=== PATIENT | male | born 1960 | race Caucasian/White ===

== ENCOUNTER 2016-07-12 09:14 | Observation (INO) | payer MEDICARE, OTHER ==
--- NOTE | ~2016-07-12 | CN ---
Consultation Report [facility] [address] [place]. [address] NAME: RENATE TEJEDA JR : 62 STATUS : ADM IN PAT#: [id number] AGE: 56 ADM/REG DATE : 07/12/16 MR#: [id number] REPORT SERV DATE: 07/13/16 DICTATED BY: ARNALDO CHO. DATE: 07/12/16 REPORT STATUS : Draft TRANSCRIBED BY: MODChloe DATE: 07/12/16 NEPHROLOGY CONSULT DATE OF CONSULTATION: 07/12/2016 CHIEF COMPLAINT: ESRD. HISTORY OF PRESENT ILLNESS: The patient is a 56-year-old white male with significant past medical history of ESRD, amiodarone dependent atrial fibrillation, diabetes, and COPD, who presented to [facility] for a scheduled elevation of his left upper AV fistula. DICTATION ENDS HERE JUAN C/ELIZABETH Arnaldo Cho M.D. / [id number] CC: Laurent Carbajal M.D.
--- NOTE | ~2016-07-12 | CN ---
Consultation Report [facility] [address] [place]. [address] NAME: RENATE TEJEDA ANGELLA CHAPARRO : 62 STATUS : JOAQUÍN JACKSON#: [id number] AGE: 56 ADM/REG DATE : 07/12/16 MR#: [id number] REPORT SERV DATE: 09/29/16 DICTATED BY: ARNALDO CHO DATE: 09/29/16 REPORT STATUS : Draft TRANSCRIBED BY: ELIZABETH DATE: 09/29/16 DATE OF CONSULTATION: 07/13/2016 HISTORY OF PRESENT ILLNESS: The patient is a 56-year-old white male with significant past medical history of ESRD, amiodarone-dependent atrial fibrillation, diabetes, COPD, who presented to [facility] for scheduled evaluation and management of his left upper AV fistula. Dr. Carbajal admitted the patient for a 23-hour observation for elevation of his left upper AV fistula. PAST MEDICAL HISTORY/PAST SURGICAL HISTORY: 1. End-stage renal disease, left upper AV fistula. 2. COPD. 3. Diabetes. 4. Hypertension. 5. Amiodarone-dependent atrial fibrillation. 6. Hypothyroidism. SOCIAL HISTORY/FAMILY HISTORY: Noncontributory. ALLERGIES: UNKNOWN. MEDICATIONS: Please see MAR. REVIEW OF SYSTEMS: Complete review of systems done and is negative, otherwise, as stated in the HPI. PHYSICAL EXAMINATION: VITAL SIGNS: The patient is afebrile, hemodynamically stable. GENERAL: He is no apparent distress. He answers questions appropriately. SKIN: No petechiae or purpura. NECK: Trachea is midline. HEENT: Moist mucous membranes. No scleral icterus. CARDIOVASCULAR: Irregularly irregular. No gallops, rubs, or murmurs. RESPIRATORY: Scattered wheezes. No increased respiratory rate. ABDOMEN: Soft. Positive bowel sounds. EXTREMITIES: No peripheral edema. LABS: Reviewed. ASSESSMENT AND PLAN: 1. End-stage renal disease, hemodialysis will be completed on a scheduled basis. Labs will be monitored including electrolytes, acid base, anemia. 2. Home medications. 3. Chronic obstructive pulmonary disease, nebs, Solu-Medrol IV x1. Chest x-ray. 4. Home and p.r.n. medications. Consultation Report [facility] [address] [place]. [address] NAME: RENATE TEJEDA ANGELLA CHAPARRO : 62 STATUS : DIS Radha PAT#: [id number] AGE: 56 ADM/REG DATE : 07/12/16 MR#: [id number] REPORT SERV DATE: 09/29/16 DICTATED BY: ARNALDO CHO. DATE: 09/29/16 REPORT STATUS : Draft TRANSCRIBED BY: ELIZABETH DATE: 09/29/16 5. Disposition, per primary team. SGG/ELIZABETH Arnaldo Cho M.D. / [id number] CC: Laurent Carbajal M.D.
--- NOTE | ~2016-07-12 | OP ---
Record Of Operation [facility] [address] [place]. [address] NAME: RENATE TEJEDA JR : 62 STATUS : DIS Radha PAT#: [id number] AGE: 56 ADM/REG DATE : 07/12/16 MR#: [id number] REPORT SERV DATE: 07/17/16 DICTATED BY: LAURENT CARBAJAL DATE: 07/16/16 REPORT STATUS : Draft TRANSCRIBED BY: ELIZABETH DATE: 07/16/16 DATE OF PROCEDURE: 07/12/2016 PREPROCEDURE DIAGNOSIS: Failing left arm AV fistula, difficult for cannulation. POSTOPERATIVE DIAGNOSIS: Failing left arm AV fistula, difficult for cannulation. PROCEDURE PERFORMED: Elevation of the distal left arm AV fistula. ATTENDING: Laurent Carbajal M.D. ANESTHESIA: Local MAC. COMPLICATIONS: None. INDICATION FOR PROCEDURE: Secondary to this pleasant 56-year-old gentleman presenting with evidence of a failing left arm AV fistula with the inability to cannulate secondary to depth of the fistula. Recommendations were made for elevation of the fistula. Risks and benefits were discussed, consent was obtained. DETAILS OF PROCEDURE: The patient was brought to the endovascular operating room, placed in supine position, prepped and draped in routine sterile fashion with attention to the left upper extremity. After appropriate local and MAC anesthesia incision was then made over the fistula after noninvasive ultrasound testing clearly defined the location of the fistula. Pictures of these structures were taken and placed on chart. Next, dissection proceeded down to the fistula, which was then loop controlled and skeletonized along its length. Two small branches were ligated and divided posteriorly and two distal branches were ligated and divided as well. The fistula was then brought to the surface with two loops, and the deep layers were then closed with Vicryl leaving a small shallow space for the fistula. The skin was then mobilized along the edge and the skin was then closed with a running Vicryl suture. Monocryl was then used to close the skin tightly and then Steri-Strips and dressings were applied. There was excellent thrill in the fistula at the end of the procedure and the two areas that could be cannulated proximally were then marked. The arm was then wrapped with gauze. The patient tolerated the procedure well. BRANDON/ELIZABETH Laurent Carbajal M.D. / [id number]
[~2016-07-12 09:14] MED LIST: *UNABLE1; ACET500CAP PO; C1 PO; C5 PO; CORDARONE PO; COREG3 PO; COUMADIN10 MG PO; COZ25 PO; DUONEB INH; L80 PO; LANTUS SC; LEVEMIR SC; LEVOTHYROXIN50 MCG PO; LIPITOR20 PO; NOVOLOG SC; PACERONE100 MG PO; PCET PO; PROAIR HFA INH; SILVADENE1 % TOP; SPIRIVA INH; SYN.05 PO; TESSALON200 MG PO; TOPXL100 PO; TUMS E-X750 M2 PO; TUMSROLL PO; VELPHORO PO; ZOCOR20 PO; ZOL50 PO
[2016-07-12 10:22] LABS: BASOPHILS 0.6 %; BASOPHILS ABSOLUTE 0.05 10/3/uL (0.0-0.16); EOSINOPHILS 4.3 %; EOSINOPHILS ABSOLUTE 0.35 10/3/uL (0.0-0.53); IMMATURE GRANULOCYTES 0.6 %; IMMATURE GRANULOCYTES ABSOLUTE 0.05 10/3/uL (0.0-0.11); LYMPHOCYTES 17.5 %; LYMPHOCYTES ABSOLUTE 1.43 10/3/uL (0.67-4.30); MEAN CORPUS HGB CONC 32.6 g/dL (32.0-36.0); MEAN CORPUSCULAR HEMOGLOB 35.5 pg (26.0-34.0); MEAN PLATELET VOLUME 10.7 fL (9.2-13.0); MONOCYTES 8.8 %; MONOCYTES ABSOLUTE 0.72 10/3/uL (0.21-1.20); NEUTROPHILS 68.2 %; NEUTROPHILS ABSOLUTE 5.58 10/3/uL (2.02-8.40); WHITE BLOOD CELLS 8.2 10/3/uL (4.5-10.5)
[2016-07-12 10:24] LABS: HEMATOCRIT 41.4 % (40.0-51.0); HEMOGLOBIN 13.5 g/dL (13.6-17.8); MANUAL DIFF NO %; MEAN CORPUSCULAR VOLUME 108.9 fL (80-100); PLATELET COUNT 115 10/3/uL (150-400); RBC DISTRIBUTION WIDTH 16.6 % (12.0-16.0)
[2016-07-12 10:31] LABS: INTERNATIONAL NORMAL RATI 1.3 UNITS (-)
[2016-07-12 10:32] LABS: PROTIME (NOT ORD) 16.1 SEC (12.0-14.5)
[2016-07-12 10:35] LABS: CHLORIDE, SERUM 100 MMOL/L (96-112); CO2 (CARBON DIOXIDE) 31 MMOL/L (24-34); CREATININE 5.59 MG/DL (0.70-1.30); GFR AFRICAN AMERICAN 12 ML/MIN (>=60); GFR NON AFRICAN AMERICAN 11 ML/MIN (>=60); SODIUM, SERUM 139 MMOL/L (135-148)
[2016-07-12 10:36] LABS: BUN (BLOOD UREA NITROGEN) 29 MG/DL (6-23); GLUCOSE, SERUM 127 MG/DL (60-99); POTASSIUM, SERUM 4.8 MMOL/L (3.5-5.3)
[2016-07-13 05:34] LABS: BASOPHILS 0 %; EOSINOPHILS 0 %; HEMATOCRIT 40.9 % (40.0-51.0); HEMOGLOBIN 13.3 g/dL (13.6-17.8); IMMATURE GRANULOCYTES 0.3 %; IMMATURE GRANULOCYTES ABSOLUTE 0.01 10/3/uL (0.0-0.11); INTERNATIONAL NORMAL RATI 1.4 UNITS (-); LYMPHOCYTES 8.7 %; LYMPHOCYTES ABSOLUTE 0.33 10/3/uL (0.67-4.30); MEAN CORPUS HGB CONC 32.5 g/dL (32.0-36.0); MEAN CORPUSCULAR HEMOGLOB 35.7 pg (26.0-34.0); MEAN CORPUSCULAR VOLUME 109.7 fL (80-100); MEAN PLATELET VOLUME 10.7 fL (9.2-13.0); MONOCYTES 1.3 %; MONOCYTES ABSOLUTE 0.05 10/3/uL (0.21-1.20); NEUTROPHILS 89.7 %; PLATELET COUNT 86 10/3/uL (150-400); PROTIME (NOT ORD) 16.7 SEC (12.0-14.5); RBC DISTRIBUTION WIDTH 16.4 % (12.0-16.0); RED CELL COUNT 3.73 10/6/uL (4.7-6.1)
[2016-07-13 05:36] LABS: MANUAL DIFF NO %; WHITE BLOOD CELLS 3.8 10/3/uL (4.5-10.5)
[2016-07-13 05:54] LABS: ALBUMIN 3.2 G/DL (3.5-5.0); CALCIUM, SERUM 9.4 MG/DL (8.5-10.4); CHLORIDE, SERUM 97 MMOL/L (96-112); CO2 (CARBON DIOXIDE) 28 MMOL/L (24-34); PHOSPHORUS, SERUM 6.2 MG/DL (2.5-4.5); POTASSIUM, SERUM 5.2 MMOL/L (3.5-5.3); SODIUM, SERUM 137 MMOL/L (135-148)
[2016-07-13 05:56] LABS: BUN (BLOOD UREA NITROGEN) 37 MG/DL (6-23); CREATININE 6.45 MG/DL (0.70-1.30); GFR AFRICAN AMERICAN 10 ML/MIN (>=60); GFR NON AFRICAN AMERICAN 9 ML/MIN (>=60); GLUCOSE, SERUM 180 MG/DL (60-99)
[2016-07-13] MEDS ORDERED: PCET PO (12:03)
[2016-12-06] MEDS ORDERED: IMOD PO (22:42)
[2016-12-06] MEDS ORDERED: PACERONE100 MG PO (22:43)
[2016-12-06] MEDS ORDERED: C1 PO (22:43)
[2016-12-06] MEDS ORDERED: LIPITOR20 PO (22:44)
[2016-12-06] MEDS ORDERED: SYN075 PO (22:45)
[2016-12-06] MEDS ORDERED: ZOL50 PO (22:45)
[2016-12-06] MEDS ORDERED: AT10 PO (22:46)
[2016-12-06] MEDS ORDERED: COREG3 PO (22:46)
[2016-12-06] MEDS ORDERED: VENTOLIN HFA INH (22:46)
[2016-12-06] MEDS ORDERED: LEVEMFLXPN SC (22:48)
[2016-12-06] MEDS ORDERED: DUONEB INH (22:49)
[2016-12-06] MEDS ORDERED: ACET500CAP PO (22:49)
== END 2016-07-13 15:34 | disposition home or self-care (01) ==
LOC: SDC 09:14 → 2SO 18:40
PROVIDERS: Internal Medicine Nephrology; Specialist
PROC: 03W Upper Arteries, Revision (ICD-10-PCS; principal; 2016-07-12 11:00)
DX: T82.590A Other mechanical complication of surgically created arteriovenous fistula, initial encounter (principal); I12.0 Hypertensive chronic kidney disease with stage 5 chronic kidney disease or end stage renal disease; N18.6 End stage renal disease; I48.91 Unspecified atrial fibrillation; E11.22 Type 2 diabetes mellitus with diabetic chronic kidney disease; J44.9 Chronic obstructive pulmonary disease, unspecified; F17.210 Nicotine dependence, cigarettes, uncomplicated; G47.33 Obstructive sleep apnea (adult) (pediatric); E78.00 Pure hypercholesterolemia, unspecified; I25.10 Atherosclerotic heart disease of native coronary artery without angina pectoris; J45.909 Unspecified asthma, uncomplicated; M19.90 Unspecified osteoarthritis, unspecified site; D63.1 Anemia in chronic kidney disease; Z98.890 Other specified postprocedural states
CPT/HCPCS: 36832; 71020; 80048; 80069; 82962; 83880; 85025; 85610; 93005; 94640; 96374; A9270-GY; G0257; G0378; J0330; J0690; J1170; J2250; J2370; J2930; P9045; Q9966